=== PATIENT | female | born 1965 | race Caucasian/White ===

== ENCOUNTER 2020-08-26 09:05 | Outpatient (CLI) | payer BC, SELFPAY ==
--- NOTE | ~2020-08-26 | MM_ITS ---
EXAMINATION: MM screening [facility] BI w [place] HISTORY: Screening TECHNIQUE: Craniocaudal and mediolateral oblique 3-D tomosynthesis images were obtained and synthetic 2-D images were generated. CAD analysis was submitted and interpreted. COMPARISON: Comparison to multiple prior studies sequentially, with oldest reviewed study dated 03/26. BREAST PARENCHYMAL COMPOSITION: There are scattered areas of fibroglandular density. FINDINGS: Stable benign-appearing right breast calcifications. There is no evidence of suspicious mas s, calcification, or architectural distortion to suggest malignancy in either breast. There has been no suspicious interval change. IMPRESSION: 1. No mammographic evidence of malignancy. 2. Recommend routine screening mammography in one year. BI-RADS Category 2: Benign finding(s). Reviewed, dictated and finalized at location A. NESS PROPOSAL REP
== END 2020-08-26 09:06 | disposition home or self-care (01) ==
LOC: ANHIMG 09:08
PROVIDERS: PCP Family Medicine; Visit Provider Obstetrics & Gynecology
DX: Z12.31 Encounter for screening mammogram for malignant neoplasm of breast (principal)
CPT/HCPCS: 77063; 77067

== ENCOUNTER 2020-12-01 14:43 | Outpatient (CLI) | payer BC, SELFPAY ==
[2020-12-01 16:32] LABS: Alanine Aminotransferase 13 U/L (4-35); Albumin Level 4.3 g/dL (3.5-5.1); Alkaline Phosphatase 44 U/L (38-126); Anion Gap 8 mmol/L (8-16); Aspartate Amino Transferase 28 U/L (14-36); Bilirubin,Total 0.3 mg/dL (0.2-1.3); Blood Urea Nitrogen 12 mg/dL (7-17); Calcium 8.8 mg/dL (8.4-10.2); Carbon Dioxide 28 mmol/L (22-30); Chloride 105 mmol/L (98-107); Estimated Glomerular Filt Rate > 60; Glucose 95 mg/dL (65-105); Potassium 3.7 mmol/L (3.4-5.0); Sodium 141 mmol/L (137-145)
[2020-12-01 16:45] LABS: Parathyroid Intact 35.5 pg/mL (7.5-53.5)
[2020-12-01 16:55] LABS: Free T4 Free Thyroxine 0.86 ng/mL (0.78-2.19); Vitamin D 25 Hydroxy 68.8 ng/mL
== END 2020-12-01 14:44 | disposition home or self-care (01) ==
PROVIDERS: PCP Family Medicine
DX: E04.2 Nontoxic multinodular goiter (principal); E21.3 Hyperparathyroidism, unspecified
CPT/HCPCS: 36415; 80053; 82306; 83970; 84439; 84443

== ENCOUNTER 2021-08-30 16:44 | Outpatient (CLI) | payer BC, SELFPAY ==
--- NOTE | ~2021-08-30 | MM_ITS ---
EXAMINATION: MM screening [facility] HISTORY: Screening TECHNIQUE: Craniocaudal and mediolateral oblique 3-D tomosynthesis images were obtained and synthetic 2-D images were generated. CAD analysis was submitted and interpreted. COMPARISON: Comparison to multiple prior studies sequentially, with oldest reviewed study dated 03/26. BREAST PARENCHYMAL COMPOSITION: There are scattered areas of fibroglandular density. FINDINGS: There is no evidence of suspicious mass, calcification, or architectural distortion to sugg est malignancy in either breast. There has been no suspicious interval change. IMPRESSION: 1. No mammographic evidence of malignancy. 2. Recommend routine screening mammography in one year. BI-RADS Category 1: Negative Reviewed, dictated and finalized at location A. 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
== END 2021-08-30 16:45 | disposition home or self-care (01) ==
PROVIDERS: PCP Family Medicine; Visit Provider Obstetrics & Gynecology
DX: Z12.31 Encounter for screening mammogram for malignant neoplasm of breast (principal)
CPT/HCPCS: 77063; 77067

== ENCOUNTER 2024-02-26 15:02 | Outpatient (CLI) | payer OTHER, SELFPAY ==
--- NOTE | ~2024-02-26 | MM_ITS ---
EXAMINATION: MM screening [facility] HISTORY: Screening TECHNIQUE: Craniocaudal and mediolateral oblique 3-D tomosynthesis images were obtained and synthetic 2-D images were generated. CAD analysis was submitted and interpreted. COMPARISON: Comparison to multiple prior studies sequentially, with oldest reviewed study dated 05/25. BREAST PARENCHYMAL COMPOSITION: Dense: The breasts are heterogeneously dense, which may obscure small masses FINDINGS: Stable breast calcifications. There is no evidence of suspicious mass, calcification, or ar chitectural distortion to suggest malignancy in either breast. There has been no suspicious interval change. IMPRESSION: 1. No mammographic evidence of malignancy. 2. Recommend routine screening mammography in one year. BI-RADS Category 1: Negative Reviewed, dictated and finalized at location B.
== END 2024-02-26 15:03 | disposition home or self-care (01) ==
LOC: ANHIMG 15:03
PROVIDERS: Visit Provider Obstetrics & Gynecology
DX: Z12.31 Encounter for screening mammogram for malignant neoplasm of breast (principal)
CPT/HCPCS: 77063; 77067

== ENCOUNTER 2025-04-07 15:52 | Outpatient (CLI) | payer SELFPAY ==
--- NOTE | ~2025-04-07 | MM_ITS ---
EXAMINATION: MM screening [facility] HISTORY: Screening TECHNIQUE: Craniocaudal and mediolateral oblique 3-D tomosynthesis images were obtained and synthetic 2-D images were generated. CAD analysis was submitted and interpreted. COMPARISON: 02/26/2024 BREAST PARENCHYMAL COMPOSITION: There are scattered areas of fibroglandular density. FINDINGS: There is no evidence of suspicious mass, calcification, or architectural distortion to suggest malignancy. There has been no suspicious interval change. IMPRESSION: 1. No mammographic evidence of malignancy. Recommend routine screening mammography in one year. BI-RADS Category 2: Benign finding(s) Reviewed, dictated and finalized at location Q. IMPRESSION: 1. No mammographic evidence of malignancy. Recommend routine screening mammogra phy in one year. BI-RADS Category 2: Benign finding(s)
--- OUTSIDE RECORDS SUMMARY | 2025-04-07 17:24 | XMS_ITS | Patient Health Record ---
Author Organization [facility] Address [address] [place], [place] [id number] Care Team Providers Care Collar Packer Name Role Phone PANTERA ANNE Unavailable [phone] Ethan Zepeda Unavailable Unavailable Reason For Referral No Information Plan Of Treatment No Information Insurance Providers Payer Name Payer Address Payer Phone Subscriber Number Group Number Insured Name Patient Relationship to Insured Coverage Start Date Coverage End Date [facility] ([facility] ATTN CLAIMS [address] [place] [address] [id number] MELANIE MARTINEZ Spouse - patient is the spouse of the insured
--- OUTSIDE RECORDS SUMMARY | 2025-04-07 17:24 | XMS_ITS | Clinical Summary ---
Author Organization [facility] Address [address] [place] [address] Phone Care Team Providers Care Cafeteria Clerk Name Role Phone No, Physician Primary Care Provider [phone] Allergies No known active allergies Medications calcium carbonate/vitamin D3 (CALCIUM 500 + D, D3, ORAL) Active flaxseed-omega3,6, 9-fatty acid 1,300-670-155 mg capsule Active ferrous gluconate 236 mg (27 mg iron) tablet Active b complex vitamins (VITAMINS B COMPLEX) capsule Act lilian cyanocobalamin (Vitamin B-12) 500 mcg tabletIndications: Prevention of Vitamin B12 Deficiency Active vitamin E acetate (VITAMIN E ORAL) Act lilian Active Problems Problem Noted Date Diagnosed Date Hair changes 10/20/2020 Assessment & Plan (10/25/2020 2:05 PM CDT): Notes yellowing of her hair that hasn't completely resolved with purple shampoo. No association to my knowledge with hormonal changes. Will refer to derm for additional recommendations. Dyslipidemia 03/21/2018 Assessment & Plan (03/21/2018 10:08 PM CDT): She reported a recent lipid panel with HDL in the 90s but LDL in the 150s. We estimated her ASCVD risk, which was <5%, so I agreed that a statin is not indicated at this time, though we might consider it if LDL rises >160. She is already quite active and follows a plant-based diet with little dairy. I encouraged her to continue to optimize lifestyle factors. Multinodular goiter 03/19/2018 Assessment & Plan (04/18/2022 10:25 AM CDT): Remaining nodule in right thyroid stable by ultrasound 09/12. Will likely continue to follow clinically. No neck changes. Assessment & Plan (04/20/2021 11:58 AM CDT): Remaining nodule in right thyroid stable by ultrasound 09/12. Will likely continue to follow clinically. No neck changes. Assessment & Plan (10/19/2020 9:17 AM CDT): Remaining nodule in right thyroid stable by ultrasound 09/12. Will likely continue to follow clinically. Assessment & Plan (03/26/2019 12:15 PM CDT): Not palpable on exam. Stable. Assessment & Plan (03/21/2018 10:04 PM CDT): FNA was benign in 2012 with only small increase in size since. Her last ultrasound was last year, so I will repeat this in another 1-2 years. Rapid growth would prompt consideration of re-biopsy. Thyroid function was normal last month without exogenous thyroid hormone. Hyperparathyroidism 03/19/2018 Assessment & Plan (04/18/2022 10:25 AM CDT): H/o primary hyperpara s/p resection and normalization of values. Has had a single elevated calcium level since that subsequently normalized again. Asymptomatic now, will continue to monitor. Assessment & Plan (04/20/2021 11:58 AM CDT): H/o primary hyperpara s/p resection and normalization of values. Has had a single elevated calcium level since that subsequently normalized again. Asymptomatic now, will continue to monitor. Assessment & Plan (10/25/2020 2:06 PM CDT): H/o primary hyperpara s/p resection and normalization of values, but then hypercalcemia recurred last year, but subsequently normalized again. Check CMP, plus vitamin D and PTH again today. Assessment & Plan (03/26/2019 12:16 PM CDT): H/o primary hyperpara s/p resection and normalization of values. Check CMP today. If okay, can stop checking unless new symptoms. Assessment & Plan (03/19/2018 4:29 PM CDT): Post-operatively, she is now taking only a single daily calcium supplement. I checked a renal function panel today, which revealed a normal calcium level. Low bone mass 03/19/2018 Assessment & Plan (04/18/2022 10:25 AM CDT): Dxa scan in 2019 showed low bone mass, but FRAX was not high enough for active treatment. Repeat DXA with no changes. Continue calcium and vitamin D, plus exercise. Assessment & Plan (04/20/2021 11:59 AM CDT): Dxa scan in 2019 showed low bone mass, but FRAX was not high enough for active treatment. Repeat DXA with no changes. Continue calcium and vitamin D, plus exercise. Assessment & Plan (10/25/2020 2:03 PM CDT): Dxa scan in 2019 showed low bone mass, but FRAX was not high enough for active treatment. Due for repeat DXA. Continue calcium and vitamin D, plus exercise. Assessment & Plan (03/26/2019 12:15 PM CDT): Dxa scan in 2019 showed low bone mass, but FRAX was not high enough for active treatment. She is taking calcium and vitamin D, and 25(OH)D level was adequate. Will repeat DXA in 2020. Continue exercise, Vit D supplementation, healthy diet. Surgical History Surgery Date Site/Laterality Comments RI PARATHYROIDECTOMY/EXPLORATION PARATHYROIDS Parathyroid Resection Sub-Total Parathyroidectomy - (Added by TW Conv) RI TOTAL THYROID LOBEC UNI W/CONTRALAT STOT LOBEC Thyroid Surgery Juan-Thyroidectomy Left Lobe - (Added by TW Conv) Medical History Medical History Date Comments Malignant neoplasm of thyroi d gland (HCC) Papillary thyroid carcinoma - (Added by TW Conv) Primary hyperparathyroidism Prim arnold hyperparathyroidism - (Added by TW Conv) Nontoxic single thyroid nodule N ontoxic single thyroid nodule - Solitary Thyroid Nodule (Added by TW Conv) Family History Medical History Relation Name Comments Cancer Father Family history of malignant neoplasm - (Added by TW Conv) Cancer Mother Family history of malignant neoplasm - (Added by TW Conv) Relation Name Status Comments Father Mother Social History Tobacco Use Types Packs/Day Years Used Date Smoking Tobacco: Never Smokeless Tobacco: Never Tobacco Cessation:Counseling Given: Not Answered Comments Unknown Sex and Gender Information Value Date Recorded Sex Assigned at Not on file 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 Gender Identity Not on file Sexual Orientation Not on file Obstetrics History Last Filed Vital Signs Vital Sign Reading Time Taken Comments Blood Pressure 127/81 09/03/2024 11:51 AM CDT Pulse 70 09/03/2024 11:51 AM CDT Temperature 36.7 C (98.1 F) 09/03/2024 11:51 AM CDT Respiratory Rate - - Oxygen Saturation 100% 06/26/2014 12: 00 PM SALES DEVELOPMENT SPECIALIST Inhaled Oxygen Concentration - - Weight 49.4 kg (108 lb 12.8 oz) 025 11:51 AM CDT Height 152.4 cm (5') 09/03/2024 11:51 AM CDT Body Mass Index 21.25 09/03/2024 11:51 AM CDT Plan of Treatment Health Maintenance Due Date Last Done Comments Breast Cancer Screening-Mammogram 1965 Cervical Cancer Screening 1965 Colon Cancer Screening-Colonoscopy 1965 Depression Screening 1965 Hepatitis C Screening 1965 DTaP/Tdap/Td Vaccine (1 - Tdap) 01/13/1975 Hepatitis B Screening 01/13/1982 Regular Well Visit/Exam 18-64 01/13/1982 Zoster Vaccine (1 of 2) 01/13/2014 Influenza Vaccine (#1) 2025 Pneumococcal vaccine <65 Aged Out No longer eligible based on patient's age to complete this topic Insurance [facility] Care Teams Cafeteria Clerk Relationship Specialty Start Date End Date No, Physician PCP - General 03/12/20
== END 2025-04-07 15:53 | disposition home or self-care (01) ==
LOC: ANHFOHIMG 15:59
PROVIDERS: PCP Obstetrics & Gynecology; Visit Provider Obstetrics & Gynecology
DX: Z12.31 Encounter for screening mammogram for malignant neoplasm of breast (principal)
CPT/HCPCS: 77063; 77067